=== PATIENT | male | born 1955 | race Caucasian/White ===

== ENCOUNTER 2023-05-31 08:23 | Inpatient (IN) | payer MEDICARE, OTHER, SELFPAY ==
[2023-05-31] VITALS (9 sets, daily range): BP systolic 146–169; BP diastolic 80–100; PULSE 54–79; RESP 15–19; TEMP 36.3–36.4; O2SAT 92–96; BMI 28.7
--- NOTE | 2023-05-31 08:27 | XR_ITS ---
WS: [id number] Portable AP upright chest, 05/31/2023 Clinical Data: dyspnea/cough Comparison: None. Findings: No nodules, masses or effusions are seen. The heart is normal. The pulmonary vascularity is not increased. No pneumonia or pneumothorax is seen. The aortic arch and descending thoracic aorta s how tortuosity. Monitor leads are on the chest wall. There is sclerosis in the head of the right loc sravan. Impression: Atherosclerosis.
--- NOTE | 2023-05-31 08:38 | ECG_ITS ---
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 Measurements Intervals Diana Rate: 73 P: 37 TN: 185 QRS: 3 QRSD: 98 T: 33 QT: 373 QTc: 412 Interpretive Statements SINUS RHYTHM MODERATE VOLTAGE CRITERIA FOR LVH, CONSIDER NORMAL VARIANT [MEETS CRITERIA IN ONE OF: R(aVL), S(V1), R(V5), R(V5/V6)+S(V1)] INFERIOR MYOCARDIAL INFARCTION , PROBABLY OLD [40+ ms Q WAVE AND/OR ST/T ABNORMALITY IN II/aVF] No previous ECG available for comparison Electronically Signed On 06-01-2023 15:56:57 CDT by Moe Cabrera M.D. [email or web address]
[2023-05-31 08:44] LABS: Basophils # 0.1 10^3/uL (0.0-0.1); Basophils % 1.2 %; Eosinophils # 0.1 10^3/uL (0.0-0.8); Eosinophils % 1.1 %; Hematocrit 53.1 % (37-53); Lymphocytes # 1.5 10^3/uL (0.8-4.8); Lymphocytes % 22.8 %; Mean Corpuscular HGB Conc 34.5 g/dL (30-55); Mean Corpuscular Hemoglobin 32.3 pg (27-33); Mean Corpuscular Volume 93.8 fl (82-101); Mean Platelet Volume 10.8 fL (7.4-10.4); Monocytes # 0.5 10^3/uL (0.2-0.9); Monocytes % 7.1 %; Neutrophils # 4.48 10^3/uL (1.8-7.7); Neutrophils % 67.5 %; Nucleated Red Blood Cells % 0 %; Platelet Count 211 10^3/cmm (157-399); Red Blood Count 5.66 10^6/uL (3.85-5.65); Red Cell Distribution Width 12.7 % (12.1-15.1); White Blood Count 6.63 10^3/uL (3.29-11.43)
--- NOTE | 2023-05-31 08:50 | CTR_ITS ---
PROCEDURE INFORMATION: Exam: CT Head Without Contrast Exam date and time: 05/31/2023 9:01 AM Age: 68 years old Clinical indication: Visual disturbance TECHNIQUE: Imaging protocol: Computed tomography of the head without contrast. Radiation optimization: All CT scans at this facility use at least one of these dose optimization techniques: automated exposure control; mA and/or kV adjustment per patient size (includes targeted exams where dose is matched to clinical indication); or iterative reconstruction. COMPARISON: No relevant prior studies available. RADIATION DOSE METRICS: Total DLP (mGy-cm): 1037.48 FINDINGS: Brain: Normal. No hemorrhage. Unremarkable white matter. No mass effect. Cerebral ventricles: No ventriculomegaly. Paranasal sinuses: Visualized sinuses are unremarkable. No fluid levels. Mastoid air cells: Visualized mastoid air cells are well aerated. Bones/joints: Unremarkable. No acute fracture. Soft tissues: Unremarkable. CT/CT head wo con* [id number] IMPRESSION: No acute intracranial abnormality.
--- NOTE | 2023-05-31 08:50 | ED_ITS ---
HPI - Weakness 2 General: Chief complaint: Weakness Stated complaint: weakness Time Seen by Provider: 05/31/23 08:24 Source: patient Mode of arrival: ambulatory History of Present Illness: 68-year-old male presents emergency room complaining of difficulty with vision. He had 2 episodes this morning before arrival of diplopia that were self- limited. He is driving he felt like his eyes are watery across that is difficult as I woke up saying he was wearing contacts and took his contacts out when the glasses that seem to improved it for a time then had another episode again about an hour and a half later. He has had a slight headache. Denies any chest pain or shortness of breath. Patient is nondiabetic. No syncopal episodes associated with this. Does have a history of sleep apnea. No vomiting diarrhea he is felt a little dizzy along with a headache no ataxia. Stroke score done at the bedside was 0. Onset (ago): hour(s) Duration: intermittent Associated symptoms: Denies chest pain, chills, confusion, melena, decreased appetite, diaphoresis, dysuria, easy bruising, fever(s), headache(s), myalgias, nausea, rash, short of breath, syncope or vomiting Review of Systems 2 Const: Denies: fever(s), chills or diaphoresis Card: Denies: chest pain or syncope Resp: Denies: dyspnea GI: Denies: abdominal pain, nausea, vomiting or melena : Denies: dysuria, urinary frequency or urinary urgency Musc: Denies: neck pain or back pain Skin/Breast: Denies: rash Neuro: Denies: headache(s) or confusion Everton/Lymph: Denies: easy bruising Physical Exam 2 Const: COMMON NORMALS: no acute distress GENERAL APPEARANCE: cooperative and comfortable ORIENTATION/CONSCIOUSNESS: Yes awake, Yes oriented to person, Yes oriented to place and Yes oriented to time HENMT: COMMON NORMALS: normocephalic, atraumatic and hearing grossly normal bilaterally HEAD & SCALP: normocephalic and atraumatic Resp: COMMON NORMALS: normal respiratory effort, No retractions, No use of accessory muscles and clear to auscultation bilaterally AUSCULTATION: clear to auscultation bilaterally Cardio: COMMON NORMALS: regular rate, regular rhythm and No murmurs present (Cardio) RATE: regular rate RHYTHM: regular rhythm GI: COMMON NORMALS: Soft to palpation and No hepatosplenomegaly present A USCULTATION: Yes normoactive bowel sounds PALPATION: Yes Soft to palpation, No Tenderness to palpation present (GI), No Guarding due to palpation present (GI) and Yes No hepatosplenomegaly present Extremity: COMMON NORMALS: normal to inspection, capillary refill normal, no clubbing, cyanosis or edema, no calf tenderness and no pedal edema Neuro: SENSORIUM/ORIENTATION: Yes oriented to person, Yes oriented to place and Yes oriented to time Skin: COMMON NORMALS: no rashes or lesions noted GENERAL SKIN EXAM: no rashes or lesions noted Course 2 Vital Signs: Vital signs: Vital Signs Temperature 97.6 F 05/31/23 08:31 Pulse Rate 61 05/31/23 14:37 Respiratory Rate 15 05/31/23 14:37 Blood Pressure 160/92 05/31/23 14:37 Pulse Oximetry 94 05/31/23 14:37 Oxygen Delivery Me thod Room Air 05/31/23 15:05 MDM - Weakness Medical Decision Making CT and CTA of the head and neck are negative. My seeing patient initially and when I went back into the room he is not having any symptoms at all. 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 When we selectively cover one of the other the double vision goes away. The offered new information and saying that she had some babbling of words this morning that lasted very briefly he had at least 2 episodes of this. Also discussed Dr. Harper and ophthalmology. Ophthalmology felt this possibly a 4th nerve palsy Dr. Harper recommended Obstet evaluation with an MRI. Will place in observation with hospitalist consult neurology and ophthalmology. He has no signs of receptive aphasia his describing intermittent expressive aphasia but is completely resolved at this time. On initial exam on repeat exam the stroke score is 0. Lab Data I reviewed the patient's lab results. 05/31/23 08:34 05/31/23 09:[address] 05/31/23 08:50 IMPRESSION: No acute intracranial abnormality. Head/Neck CTA 05/31/23 10:28 IMPRESSION: Left vertebral artery ends in PICA. No stenosis or occlusion IMPRESSION: No stenosis or occlusion. REFERENCES: NASCET CRITERIA. The degree of stenosis in the cervical segment of the internal carotid artery is based on NASCET criteria. Normal is no stenosis. Mild is less than 50% stenosis. Moderate is 50-69% stenosis. Severe is 70% to 99% stenosis. Total occlusion is no detectable patent lumen. Laboratory Results WBC 6.63 10^3/uL (3.29-11.43) 05/31/23 08:34 RBC 5.66 10^6/uL (3.85-5.65) H 05/31/23 08:34 Hgb 18.30 g/dL (11.27-16.99) H 05/31/23 08:34 Hct 53.1 % (37-53) H 05/31/23 08:34 MCV 93.8 fl (82-101) 05/31/23 08:34 MCH 32.3 pg (27-33) 05/31/23 08:34 MCHC 34.5 g/dL (30-55) 05/31/23 08:34 RDW 12.7 % (12.1-15.1) 05/31/23 08:34 Plt Count 211 10^3/cmm (157-399) 05/31/23 08:34 MPV 10.8 fL (7.4-10.4) H 05/31/23 08:34 Neut % (Auto) 67.5 % 05/31/23 08:34 Lymph % (Auto) 22.8 % 05/31/23 08:34 Lea % (Auto) 7.1 % 05/31/23 08:34 Eos % (Auto) 1.1 % 05/31/23 08:34 Baso % (Auto) 1.2 % 05/31/23 08:34 Neut # (Auto) 4.48 10^3/uL (1.8-7.7) 05/31/23 08:34 Lymph # (Auto) 1.5 10^3/uL (0.8-4.8) 05/31/23 08:34 Lea # (Auto) 0.5 10^3/uL (0.2-0.9) 05/31/23 08:34 Eos # (Auto) 0.1 10^3/uL (0.0-0.8) 05/31/23 08:34 Baso # (Auto) 0.1 10^3/uL (0.0-0.1) 05/31/23 08:34 Nucleated RBC % (auto) 0 % 05/31/23 08:34 Nucleated RBCs # 0.0 /100WBC 05/31/23 08:34 Sodium 142 mmol/L (136-145) 05/31/23 09:24 Potassium 4.0 mmol/L (3.5-5.1) 05/31/23 09:24 Chloride 104 mmol/L (98-107) 05/31/23 09:24 Carbon Dioxide 25 mmol/L (22-29) 05/31/23 09:24 Anion Gap 17.0 (5-19) 05/31/23 09:24 BUN 14 mg/dL (8-23) 05/31/23 09:24 Creatinine 0.9 mg/dL (0.7-1.2) 05/31/23 09:24 GFR Calculation 83.7 mL/min (90-130) L 05/31/23 09:24 Glucose 124 mg/dL (65-115) H 05/31/23 09:24 Calculated Osmolality 296 mOsm/kg (285-295) H 05/31/23 09:24 Calcium 9.3 mg/dL (8.5-10.5) 05/31/23 09:24 Total Bilirubin 1.1 mg/dL (0.15-1.2) 05/31/23 09:24 AST 23 U/L (0-40) 05/31/23 09:24 ALT 23 U/L (0-41) 05/31/23 09:24 Alkaline Phosphatase 108 U/L (40-130) 05/31/23 09:24 Troponin T Baseline 7 ng/L (0-15) 05/31/23 09:24 Troponin T 120 Minute 6.79 ng/L (0-15) 05/31/23 11:06 Delta Troponin T -0.21 ABS# (0-10) L 05/31/23 11:06 Total Protein 7.1 g/dL (6.6-8.7) 05/31/23 09:24 Albumin 4.7 g/dL (3.5-5.2) 05/31/23 09:24 Globulin 2.4 g/dL (1.3-4.6) 05/31/23 09:24 Urine Color Yellow (Yellow) 05/31/23 08:25 Urine Appearance Clear (CLEAR) 05/31/23 08:25 Urine pH 7 (5-7) 05/31/23 08:25 Ur Specific Winifred 1.015 (1.005-1.030) 05/31/23 08:25 Urine Protein Neg (Negative) 05/31/23 08:25 Urine Glucose (UA) Norm (Normal) 05/31/23 08:25 Urine Ketones Negative (Negative) 05/31/23 08:25 Urine Blood 2+ (Negative) H 05/31/23 08:25 Urine Nitrate Negative (Negative) 05/31/23 08:25 Urine Bilirubin Neg (Negative) 05/31/23 08:25 Urine Urobilinogen Neg mg/dL (Negative) 05/31/23 08:25 Ur Leukocyte Esterase Negative (Negative) 05/31/23 08:25 Urine RBC 5-10 /hpf (0-2) H 05/31/23 08:25 Urine WBC Rare /hpf (0-5) 05/31/23 08:25 Ur Squamous Epith Cells Rare /hpf (0-5) 05/31/23 08:25 Amorphous Sediment Not Reportable 05/31/23 08:25 Urine Bacteria Trace /hpf (NONE) 05/31/23 08:25 All radiology interpretation(s) finalized by discharge Discharge Plan Discharge Patient Disposition: Placed in Observation Admit Provider: Katelyn Kelley Clinical Impression: Transient diplopia, Expressive aphasia Coding Level of Care Code ED Automation Qa Lead for Nabila Riggs
[2023-05-31] MEDS: hyDRALAzine 20 mg/mL INJ 1 mL 10 MG IVP (09:22)
[2023-05-31] MEDS: labetalol 5 mg/mL SDV 20mL 10 MG IVP (09:23)
[2023-05-31 09:26] LABS: Add Urine Microscopic? YES; Bilirubin Urine Neg (Negative); Blood Urine 2+ (Negative); Glucose Urine UA Norm (Normal); Ketones Urine Negative (Negative); Leukocyte Esterase Urine Negative (Negative); Nitrate Urine Negative (Negative); Protein Urine Neg (Negative); Specific Gravity, Urine 1.015 (1.005-1.030); Urine Appearance Clear (CLEAR); Urine Color Yellow (Yellow); Urobilinogen Urine Neg (Negative); pH Urine 7 (5-7)
[2023-05-31 09:28] LABS: Squamous Epithelial Cell Urine RARE /hpf (0-5); WBC Urine RARE /hpf (0-5)
[2023-05-31 09:29] LABS: Add Urine Culture? No; Bacteria Urine TRACE /hpf
[2023-05-31 10:01] LABS: Troponin(5th) Baseline 7 ng/L (0-15)
[2023-05-31 10:03] LABS: Alanine Aminotransferase 23 U/L (0-41); Albumin Level 4.7 g/dL (3.5-5.2); Alkaline Phosphatase 108 U/L (40-130); Aspartate Amino Transferase 23 U/L (0-40); Blood Urea Nitrogen 14 mg/dL (8-23); Calcium 9.3 mg/dL (8.5-10.5); Carbon Dioxide 25 mmol/L (22-29); Chloride 104 mmol/L (98-107); Creatinine Clr Calc Pharmacy 87.7499; Globulin 2.4 g/dL (1.3-4.6); Glomerular Filtration Rate 83.7 mL/min (90-130); Glucose 124 mg/dL (65-115); Osmolality Calculated 296 mOsm/kg (285-295); Sodium 142 mmol/L (136-145); Total Bilirubin 1.1 mg/dL (0.15-1.2); Total Protein 7.1 g/dL (6.6-8.7)
--- NOTE | 2023-05-31 10:15 | ECG_ITS ---
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 Measurements Intervals Bowie Rate: 68 P: 31 WI: 167 QRS: -1 QRSD: 104 T: 31 QT: 401 QTc: 426 Interpretive Statements SINUS RHYTHM WITH SINUS ARRHYTHMIA VOLTAGE CRITERIA FOR LVH [MEETS CRITERIA IN ONE OF: R(aVL), S(V1), R(V5), R(V5/V6)+S(V1)] INFERIOR MYOCARDIAL INFARCTION , PROBABLY OLD [40+ ms Q WAVE AND/OR ST/T ABNORMALITY IN II/aVF] Compared to ECG 05/31/2023 08:38:22 No significant changes Electronically Signed On 06-01-2023 15:59:56 CDT by Moe Cabrera M.D. [id number]
--- NOTE | 2023-05-31 10:28 | CTR_ITS ---
PROCEDURE INFORMATION: Exam: CTA Head With Contrast, Arteriography Exam date and time: 05/31/2023 10:40 AM Age: 68 years old Clinical indication: Visual disturbance; Additional info: TIA TECHNIQUE: Imaging protocol: Computed tomographic angiography of the head with contrast. Exam focused on the arteries. 3D rendering (Not supervised by radiologist): MIP and/or 3D reconstructed images were created by the technologist. Radiation optimization: All CT scans at this facility use at least one of these dose optimization techniques: automated exposure control; mA and/or kV adjustment per patient size (includes targeted exams where dose is matched to clinical indication); or iterative reconstruction. Contrast material: [id number]; Contrast volume: 100 ml; Contrast route: INTRAVENOUS (IV); COMPARISON: CT head wo con* [id number] 05/31/2023 9:01 AM RADIATION DOSE METRICS: Total DLP (mGy-cm): 480.1 FINDINGS: ANTERIOR CIRCULATION: Right internal carotid artery: Intracranial segment is patent with no significant stenosis. No aneurysm. Right middle cerebral artery: No occlusion or significant stenosis. No aneurysm. Right anterior cerebral artery: No occlusion or significant stenosis. No aneurysm. Left internal carotid artery: Intracranial segment is patent with no significant stenosis. No aneurysm. Left middle cerebral artery: No occlusion or significant stenosis. No aneurysm. Left anterior cerebral artery: No occlusion or significant stenosis. No aneurysm. POSTERIOR CIRCULATION: Right vertebral artery: No occlusion or significant stenosis. No aneurysm. Left vertebral artery: Left vertebral artery ends in PICA. Basilar artery: No occlusion or significant stenosis. No aneurysm. Right posterior cerebral artery: No occlusion or significant stenosis. No aneurysm. Left posterior cerebral artery: No occlusion or significant stenosis. No aneurysm. Brain: No definite mass, mass effect, or midline shift. Cerebral ventricles: No ventriculomegaly. Bones/joints: Unremarkable. No acute fracture. Soft tissues: Unremarkable. PROCEDURE INFORMATION: Exam: CTA Neck With Contrast Exam date and time: 05/31/2023 10:40 AM Age: 68 years old Clinical indication: Visual disturbance; Additional info: TIA TECHNIQUE: Imaging protocol: Computed tomographic angiography of the neck with contrast. Exam focused on the cervical segments of the vasculature. 3D rendering (Not supervised by radiologist): MIP and/or 3D reconstructed images were created by the technologist. Radiation optimization: All CT scans at this facility use at least one of these dose optimization techniques: automated exposure control; mA and/or kV adjustment per patient size (includes targeted exams where dose is matched to clinical indication); or iterative reconstruction. Contrast material: [id number]; Contrast volume: 100 ml; Contrast route: INTRAVENOUS (IV); COMPARISON: CT head wo con* [id number] 05/31/2023 9:01 AM RADIATION DOSE METRICS: Total DLP (mGy-cm): 480.1 FINDINGS: Right common carotid artery: No stenosis. No dissection or occlusion. Right internal carotid artery: No stenosis of the extracranial segment. No dissection or occlusion. Right external carotid artery: No occlusion or stenosis of the origin. Left common carotid artery: No stenosis. No dissection or occlusion. Left internal carotid artery: No stenosis of the extracranial segment. No dissection or occlusion. Left external carotid artery: No occlusion or stenosis of the origin. Right vertebral artery: No stenosis. No dissection or occlusion. Left vertebral artery: No stenosis. No dissection or occlusion. Soft tissues: Normal. No significant soft tissue swelling. Bones/joints: No acute fracture. CT/CT angio headneck* [id number] IMPRESSION: Left vertebral artery ends in PICA. No stenosis or occlusion IMPRESSION: No stenosis or occlusion. REFERENCES: NASCET CRITERIA. The degree of stenosis in the cervical segment of the internal carotid artery is based on NASCET criteria. Normal is no stenosis. Mild is less than 50% stenosis. Moderate is 50-69% stenosis. Severe is 70% to 99% stenosis. Total occlusion is no detectable patent lumen.
[2023-05-31] MEDS: iohexol 350 mg/mL 500 mL Btl (per mL) IV (10:40)
[2023-05-31 11:40] LABS: Troponin 5 2HR 6.79 ng/L (0-15)
[2023-05-31 11:42] LABS: Troponin 5 2HR Delta -0.21 ABS# (0-10)
[2023-05-31] MEDS: sodium chloride 0.9% 1,000 ML 100 ML IV (15:47)
--- NOTE | 2023-05-31 16:20 | MRR_ITS ---
PROCEDURE INFORMATION: Exam: MR Head Without Contrast Exam date and time: 05/31/2023 5:39 PM Age: 68 years old Clinical indication: Visual disturbance; Additional info: Stroke, diplopia, dysarthria TECHNIQUE: Imaging protocol: Magnetic resonance imaging of the head without contrast. COMPARISON: MR angio head wo con [id number] 05/31/2023 5:31 PM, CT head dated 05/31/2023 FINDINGS: Limitations: Suboptimal evaluation of multiple sequences secondary to patient motion. Brain: No acute infarct. No intracranial hemorrhage. No significant white matter disease. Cerebral ventricles: Normal. No ventriculomegaly. Bones/joints: Unremarkable. Paranasal sinuses: Well aerated. No fluid levels. Mastoid air cells: Normal as visualized. No mastoid effusion. Orbital cavities: Orbits and globes are intact. Soft tissues: Unremarkable. MR/MR head wo con* [id number] IMPRESSION: Motion limited study. No acute intracranial abnormality.
--- NOTE | 2023-05-31 16:27 | MRR_ITS ---
PROCEDURE INFORMATION: Exam: MRA Head Without Contrast; Arteriography Exam date and time: 05/31/2023 5:31 PM Age: 68 years old Clinical indication: Visual disturbance; Sudden visual loss; Additional info: Diplopia, dysarthria, as per Dr. Harper TECHNIQUE: Imaging protocol: Magnetic resonance angiography head without contrast. Bpuh-[id number]-[id number] (TOF) technique was utilized for this exam. Exam focused on the arteries. COMPARISON: CT angio headneck* [id number] 05/31/2023 10:40 AM FINDINGS: ANTERIOR CIRCULATION: Right internal carotid artery: Intracranial segment is patent with no significant stenosis. No aneurysm. Right middle cerebral artery: No occlusion or significant stenosis. No aneurysm. Right anterior cerebral artery: No occlusion or significant stenosis. No aneurysm. Left internal carotid artery: Intracranial segment is patent with no significant stenosis. No aneurysm. Left middle cerebral artery: No occlusion or significant stenosis. No aneurysm. Left anterior cerebral artery: No occlusion or significant stenosis. No aneurysm. POSTERIOR CIRCULATION: Right vertebral artery: No occlusion or significant stenosis. No aneurysm. Left vertebral artery: The left intradural vertebral artery is not well assessed on this study but was noted on CTA from same day to terminate in the left posterior inferior cerebeller artery Basilar artery: No occlusion or significant stenosis. No aneurysm. Right posterior cerebral artery: No occlusion or significant stenosis. No aneurysm. Right posterior communicating artery noted. Left posterior cerebral artery: No occlusion or significant stenosis. No aneurysm. MR/MR angio head wo con [id number] IMPRESSION: No significant intracranial arterial stenosis or aneurysm.
--- NOTE | 2023-05-31 16:27 | MRR_ITS ---
PROCEDURE INFORMATION: Exam: MRA Neck With Contrast Exam date and time: 05/31/2023 5:52 PM Age: 68 years old Clinical indication: Visual disturbance; Diplopia; Additional info: Diplopia, dysarthria, as per Dr. Harper TECHNIQUE: Imaging protocol: Magnetic resonance angiography of the neck with contrast. Angiographic sequences such as [id number] (TOF) or Time-resolved contrast techniques were performed. Contrast material: MULTIHANCE; Contrast volume: 20 ml; Contrast route: INTRAVENOUS (IV); COMPARISON: CT angio headneck* [id number] 05/31/2023 10:40 AM FINDINGS: Right common carotid artery: No stenosis. No dissection or occlusion. Right internal carotid artery: No stenosis of the extracranial segment. No dissection or occlusion. Right external carotid artery: No stenosis. No dissection or occlusion of the origin. Right vertebral artery: No stenosis. No dissection or occlusion. Left common carotid artery: No stenosis. No dissection or occlusion. Left internal carotid artery: No stenosis of the extracranial segment. No dissection or occlusion. Left external carotid artery: No stenosis. No dissection or occlusion of the origin. Left vertebral artery: No stenosis. No dissection or occlusion. MR/MR angio neck w con* [id number] IMPRESSION: No stenosis or occlusion. REFERENCES: NASCET CRITERIA. The degree of stenosis in the cervical segment of the internal carotid artery is based on NASCET criteria. Normal is no stenosis. Mild is less than 50% stenosis. Moderate is 50-69% stenosis. Severe is 70% to 99% stenosis. Total occlusion is no detectable patent lumen.
[2023-05-31] MEDS: heparin 5,000 unit/mL INJ 1 mL 5000 UNIT SUBCUT (16:47)
[2023-05-31] MEDS: aspirin 325 mg EC Tablet PO (16:48)
--- NOTE | 2023-05-31 17:12 | P.HP_ITS ---
Providers/Chief Complaint 2 Admitting Physician: Katelyn Kelley MD Chief Complaint: weakness History of Present Illness Owen Jain is a 68 year old male with no significant past medical history, family history of type 2 diabetes mellitus presented to the ER after having multiple episodes of unilateral diplopia associated with confusion and episodes of garbled speech since today morning. As per patient's today morning patient was absolutely fine when he woke up but he had episode lasting for around 3 hours. Since admission he has had 2 episodes. Last episode was also associated with right-sided facial droop. After each episode patient is slightly confused for a small time and then gets back to his baseline. 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 In the ER he was found to have a high blood pressure for which he received 10 of IV hydralazine. Does not check his blood pressures at home and last time he checked was sometime in February when it was 130s over 90s. Care were discussed in detail between the ER physician and neurologist who recommended patient to be admitted under observation and MRI head. Ophthalmology has also been consulted from the ER. On examination patient is lying comfortably in bed, awake and alert without any distress or weakness or numbness in any of his arms or legs, no garbled speech, no dysarthria but does have mild redness of the left eye with slight drooping of the eyelid. 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 Review of Systems 2 General: Reports: 10 or more systems reviewed and unremarkable except in HPI and below Const: Denies: fever(s), chills, body aches, change in appetite, change in weight, malaise, night sweats, diaphoresis, change in sleep pattern, daytime sleepiness or snoring Eyes: Denies: change in vision, blurry vision, photophobia, eye discomfort or eye discharge ENMT: Denies: throat pain, enlarged tonsils, hoarseness, mouth pain, oral sores, dry mouth, tinnitus, nasal congestion or post nasal drip Card: Denies: chest pain, palpitations, irregular heart rhythm, edema, swelling of feet/ankles, lightheadedness, syncope, pre-syncope, dyspnea on exertion, orthopnea, leg pain with exertion or acrocyanosis Resp: Denies: dyspnea, productive cough, non-productive cough, wheezing, stridor, pain on inspiration, change in phlegm color, hemoptysis or chest congestion GI: Denies: abdominal pain, nausea, vomiting, hematemesis, coffee ground emesis, dysphagia, heartburn, diarrhea, constipation, bloating, GI cramping, change in bowel habits, pain on defecation, hematochezia or melena : Denies: flank pain, difficulty urinating, dysuria, urinary frequency, urinary urgency, urinary hesitancy, urinary dribbling, difficulty starting urination, change in urine stream, nocturia or hematuria Musc: Denies: neck pain, back pain, extremity pain, joint pain, joint swelling, joint redness, joint stiffness or limited range of motion Neuro: Denies: headache(s), numbness in extremities, weakness in extremities, sensory changes, lack of coordination, difficulty walking, frequent falls, dizziness, vertigo, confusion, Slurred speech present, difficulty communicating thoughts or seizure-like activity Psych: Denies: anxiety, depression, mood swings, panic attacks, hopelessness or irritability Endo: Denies: polyuria, polydipsia, tired all the time, cold intolerance, excessive sweating, flushing or heat intolerance [place]/Lymph: Denies: easy bruising or easy bleeding All/Imm: Denies: tongue swelling, facial swelling or acute wheezing Medications/Allergies Home Medications Medication Instructions Recorded Confirmed Last Taken Type naproxen sodium 220 mg tablet 440 mg PO Q12H PRN Pain 05/31/23 05/31/23 Unknown History (Aleve) Allergies Allergy/AdvReac Type Severity Reaction Status Date / Time No Known Drug Allergies Allergy Unknown Verified 05/31/23 15:18 PFSH Acute 2 PFSH: Medical History (Updated 05/31/23 @ 17:17 by Rohan Montoya MD) Sanon palsy Surgical History (Updated 05/31/23 @ 17:25 by Rohan Montoya MD) No pertinent past surgical history Family History (Updated 05/31/23 @ 17:25 by Rohan Montoya MD) Other Diabetes Social History (Updated 05/31/23 @ 17:26 by Rohan Montoya MD) Smoking and tobacco/nicotine status: never used tobacco/nicotine Alcohol intake: never Substance/Drug Use: never Caregiver/support person: Yes Lives independently: Yes Household members: spouse Housing: House Marital status: Current occupational status: employed 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 Current occupational exposures/hazards: No Vitals/I&O/Wt Last Vital Signs Temp 97.6 F 05/31/23 16:00 Pulse 72 05/31/23 16:00 Resp 16 05/31/23 16:00 BP 161/93 05/31/23 16:00 Pulse Ox 95 05/31/23 16:00 O2 Del Method Room Air 05/31/23 16:00 05/31/23 05/31/23 05/31/23 06:59 14:59 22:59 Intake Total 83.333 / 83.333 Balance 83.333 / 83.333 Weight last 48 hrs Weight 90.718 kg Weight 90.718 kg Physical Exam 2 Narrative: General: No acute distress, AO x3 HEENT: PERRLA, pupils bilaterally equal and reactive, left pupil injected Chest: Normal vesicular breath sounds, no added sounds, equal good air entry bilaterally CVS: S1-S2 regular, no murmurs, no tachycardia, no gallops, no rubs Abdomen: Soft, nontender, no organomegaly, bowel sounds present Neuro: No focal deficits, no facial deformity, AO x3, power 5/5 in all limbs, plantars bilateral upgoing Data 05/31/23 08:34 05/31/23 09:24 A&P Assessment and plan (1) TIA (transient ischemic attack): Appreciate CT head, CTA head and neck. Aspirin 324 mg one-time followed by 81 mg, atorvastatin 40 mg nightly. Given recurrent symptoms for now we will continue with permissible hypertension. Patient does have concerns for hemoconcentration with hemoglobin up to 18.3 though his platelet and white count is within normal limits. Start on normal saline at 125 cc/h. Check A1c, lipid panel. MRI head along with MR angio head and neck stat. Check echocardiogram. PT/OT/speech therapy evaluation. Seizure precaution, fall precaution. (2) Transient diplopia: Most likely in setting of TIA. Transient. Ophthalmology has been consulted. Will await further recommendations. (3) Expressive aphasia: (4) Elevated blood pressure reading: Will need to continue monitor monitor. Goal blood pressure elevated to be less than 140/90 mmHg in next 24 hours. Will start on antihypertensives accordingly. (5) Polycythemia: Plan Full code Cardiac diet Famotidine for PUD prophylaxis Heparin 5000 every 12 hourly for DVT prophylaxis Attestations 2 Medical Necessity Statement*: Admit under observation for management and further evaluation of TIA Diagnoses TIA (transient ischemic attack) G45.9 Transient diplopia H53.2 Expressive aphasia R47.01 Elevated blood pressure reading R03.0 Polycythemia D75.1
[2023-05-31] MEDS: gadobenate dimeglumine 20 mL vial IV (17:23)
[2023-05-31 17:38] LABS: Amphetamines Screen Urine Negative (Negative); Barbiturates Screen Urine Negative (Negative); Benzodiazepines Screen Urine Negative (Negative); Cocaine Screen Urine Negative (Negative); Opiate Screen Urine Negative (Negative); PCP Screen Urine Negative (Negative); THC Screen Urine Negative (Negative)
[2023-05-31 17:55] LABS: Troponin 5 6HR 6.67 ng/L (0-15)
[2023-05-31 17:56] LABS: Troponin 5 6HR Delta -0.33 ng/L (0-12)
[2023-05-31 18:14] LABS: Iron 98 ug/dL (59-158); Percent Saturation 32.9 % (20-50); Total Iron Binding Capacity 297 mcg/dl; Unsaturated Iron Binding 199 ug/dL (112-347); Vitamin B12 1532 pg/mL (232-1245)
[2023-05-31] MEDS: famotidine 20 mg Tablet PO (18:54)
[2023-05-31] MEDS: sodium chloride 0.9% 1,000 ML 150 ML IV (21:27)
[2023-05-31] MEDS: atorvastatin 40 mg Tablet PO (21:28)
[2023-06-01 03:04] LABS: Basophils # 0.1 10^3/uL (0.0-0.1); Basophils % 1.2 %; Eosinophils # 0.1 10^3/uL (0.0-0.8); Eosinophils % 1.6 %; Hematocrit 48.6 % (37-53); Lymphocytes # 1.5 10^3/uL (0.8-4.8); Lymphocytes % 22.5 %; Mean Corpuscular HGB Conc 33.7 g/dL (30-55); Mean Corpuscular Hemoglobin 31.8 pg (27-33); Mean Corpuscular Volume 94.4 fl (82-101); Monocytes # 0.5 10^3/uL (0.2-0.9); Neutrophils # 4.48 10^3/uL (1.8-7.7); Neutrophils % 66.4 %; Nucleated Red Blood Cells % 0 %; Platelet Count 181 10^3/cmm (157-399); Red Blood Count 5.15 10^6/uL (3.85-5.65); Red Cell Distribution Width 12.6 % (12.1-15.1); White Blood Count 6.75 10^3/uL (3.29-11.43)
[2023-06-01 03:20] LABS: Estmated Average Glucose 117; Hemoglobin A1C 5.7 % (4.0-6.0)
[2023-06-01 03:33] LABS: Alanine Aminotransferase 20 U/L (0-41); Alkaline Phosphatase 89 U/L (40-130); Anion Gap 13.8 (5-19); Aspartate Amino Transferase 20 U/L (0-40); Blood Urea Nitrogen 14 mg/dL (8-23); Calcium 8.4 mg/dL (8.5-10.5); Carbon Dioxide 25 mmol/L (22-29); Chloride 108 mmol/L (98-107); Creatinine Clr Calc Pharmacy 98.7186; Globulin 2.2 g/dL (1.3-4.6); Glomerular Filtration Rate 95.8 mL/min (90-130); Glucose 95 mg/dL (65-115); Magnesium 1.9 mg/dL (1.7-2.3); Osmolality Calculated 296 mOsm/kg (285-295); Phosphorus 3.8 mg/dL (2.5-4.5); Potassium 3.8 mmol/L (3.5-5.1); Sodium 143 mmol/L (136-145); Total Protein 6.2 g/dL (6.6-8.7)
[2023-06-01 03:34] LABS: Chol HDL Ratio 4.33 mg/dL (1.0-5.00); Cholesterol 195 mg/dL (0-200); HDL Cholesterol 45 mg/dL (60-100); LDL Cholesterol Calculated 134 mg/dL (50-129); LDL HDL Ratio 2.98 RATIO (0.00-3.22); Triglycerides 82 mg/dL (0-150)
[2023-06-01 03:49] LABS: Folate Level > 20.0 ng/mL (4.5-32.2)
[2023-06-01] MEDS: heparin 5,000 unit/mL INJ 1 mL 5000 UNIT SUBCUT (03:57)
[2023-06-01] MEDS: sodium chloride 0.9% 1,000 ML 150 ML IV ×2 (03:58→09:41)
[2023-06-01 05:07] VITALS: BP 160/80; PULSE 62; RESP 16; O2SAT 98
--- NOTE | 2023-06-01 06:00 | USCV_ITS ---
Owen Jain Age: 68 Gender: M : 1955 Exam Date: 06/01/2023 08:16 Ordering Phys: Rohan Montoya MD Technologist: Eleuterio Alvarez [place]am [place] [facility] [place]: tia BP: 150 / 89 HR: 63 Rhythm: Sinus Technical Quality: Adequate MEASUREMENTS (Male / Female) Normal Values 2D ECHO LVOT Diameter 2.1 cm LV Ejection Fraction MOD 2C 73.8 % LV Ejection Fraction 2C AL 73.8 % LA Diameter 3.7 cm RA Systolic Volume 4C AL 36.1 ml RA Systolic Volume 4C MOD 35.6 ml Aorta at Sinotubular Diameter 2.6 cm M-MODE LA Ao Ratio MM 1.1 AV Cusp Separation MM 1.8 cm DOPPLER AV Peak Velocity 114.0 cm/s LVOT Peak Velocity 97.0 cm/s AV Area Cont Eq vti 2.7 cm squared AV Area Cont Eq pk 2.9 cm squared MV Peak Velocity 72.0 cm/s MV Area PHT 5.0 cm squared Mitral E to A Ratio 1.0 TR Peak Velocity 166.0 cm/s TR Peak Gradient 11.0 mmHg TR Mean Velocity 101.0 cm/s TR Mean Gradient 4.9 mmHg TR Velocity Time Integral 27.4 cm PV Peak Velocity 120.0 cm/s RV Ejection Time 0.3 s FINDINGS Left Ventricle Left ventricle is normal in size. LV systolic function is normal with EF of 60 to 65%. No regional wall motion abnormalities are seen. Right Ventricle Normal in size and function Right Atrium Normal in size Left Atrium Normal in size Mitral Valve Structurally normal mitral valve. Mild mitral regurgitation. Aortic Valve Structurally normal aortic valve. No significant stenosis or regurgitation. Tricuspid Valve Mild tricuspid regurgitation. Insufficient TR jet to evaluate RVSP. Pulmonic Valve Mild pulmonic regurgitation. Pericardium Normal Aorta Normal in size IVC Appears to be normal CONCLUSIONS LV systolic function is normal with EF of 60 to 65%. Mild mitral regurgitation Mild tricuspid regurgitation Mild pulmonic regurgitation No comparison studies are available Moe Cabrera MD (Electronically Signed) Final Date: 01 June 2023 11:57 S
[2023-06-01 07:46] VITALS: BP 163/55; PULSE 71; RESP 16; TEMP 36.8; O2SAT 94
[2023-06-01] MEDS: aspirin 81 mg EC Tablet PO (07:47)
[2023-06-01] MEDS: famotidine 20 mg Tablet PO (07:48)
[2023-06-01] MEDS: amlodipine 5 mg Tablet PO (09:36)
[2023-06-01 10:27] VITALS: BMI 28.4
[2023-06-01 11:43] VITALS: BP 175/86; PULSE 68; RESP 17; TEMP 36.4; O2SAT 96
--- NOTE | 2023-06-01 12:45 | PM.CONSULT ---
Providers/Reason For Consult Consulting Physician/Specialty*: Dr. Aleja Harper/neurology Reason for Consult*: Intermittent confusion and diplopia Requesting Physician: Dr. Soto and Dr. Pereira Attending Physician: Rohan Montoya MD History of Present Illness History of Present Illness Owen Jain is a 68 year old healthy man who still works full-time after shelter from the . He is active playing softball at home. He and his got into the car about 6 in the morning and [place] driving toward [facility] where they have a second home. He would acknowledge that he has not been eating or drinking as much as usual but he has not been ill. Several hours before arrival, he developed vertical diplopia. He felt unbearably sleepy. He seemed mildly confused and said things that did not make sense to his . He denies headache although he told Dr. Soto that he had a slight headache. He had terrible feeling of everything being wrong. He got better only to suffer another episode several hours later. He arrived in our emergency department at 08 24 and at that time his examination was unremarkable with a stroke scale score of 0. Dr. Soto called because his symptoms were so atypical and we agreed that the patient should be admitted so he could have an MRI. Not long after he got to the floor he had another episode that was sustained. He was talking gibberish. His tongue was sticking out of the left side of his mouth, laterally deviated. He felt nauseated. He went to sleep and slept for an hour or 2 and when he woke up he was famished. I arrived in the room while the patient was still having his MRI scan. I talked with his and then returned to the room after reviewing the patient's MRI and took time to examine him and make a plan. I also reviewed his CT angiogram which was unremarkable and his MR angiogram. He has never had anything like this before. 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 He is not diabetic. He was polycythemic on arrival with a hemoglobin of 18.3 and he is not aware of having polycythemia in the past. He does not smoke. He is anxious to get on the road. He often has irritation of the left eye with erythema because his eye is dry ever since he had Sanon's palsy on the left and he is accustomed to having ptosis on the left since then. Review of Systems General: Reports: 10 or more systems reviewed and unremarkable except in HPI and below Const: Denies: fever(s), chills, body aches, change in appetite, change in weight, malaise, night sweats, diaphoresis, change in sleep pattern, daytime sleepiness or snoring Eyes: Denies: change in vision, blurry vision, photophobia, eye discomfort or eye discharge ENMT: Denies: throat pain, enlarged tonsils, hoarseness, mouth pain, oral sores, dry mouth, tinnitus, nasal congestion or post nasal drip Card: Denies: chest pain, palpitations, irregular heart rhythm, edema, swelling of feet/ankles, lightheadedness, syncope, pre-syncope, dyspnea on exertion, orthopnea, leg pain with exertion or acrocyanosis Resp: Denies: dyspnea, productive cough, non-productive cough, wheezing, stridor, pain on inspiration, change in phlegm color, hemoptysis or chest congestion GI: Denies: abdominal pain, nausea, vomiting, hematemesis, coffee ground emesis, dysphagia, heartburn, diarrhea, constipation, bloating, GI cramping, change in bowel habits, pain on defecation, hematochezia or melena : Denies: flank pain, difficulty urinating, dysuria, urinary frequency, urinary urgency, urinary hesitancy, urinary dribbling, difficulty starting urination, change in urine stream, nocturia or hematuria Musc: Denies: neck pain, back pain, extremity pain, joint pain, joint swelling, joint redness, joint stiffness or limited range of motion Neuro: Reports: dizziness (He has been a little bit dizzy), confusion (According to his and the nurse he would say something that did not pita) and behavioral changes; Denies: headache(s), numbness in extremities, weakness in extremities, sensory changes, lack of coordination, difficulty walking, frequent falls, vertigo (No true vertigo), Slurred speech present, difficulty communicating thoughts or seizure-like activity Psych: Reports: anxiety (He has been under a lot of stress at work); Denies: depression, mood swings, panic attacks, hopelessness or irritability Endo: Denies: polyuria, polydipsia, tired all the time, cold intolerance, excessive sweating, flushing or heat intolerance [place]/Lymph: Denies: easy bruising or easy bleeding All/Imm: Denies: tongue swelling, facial swelling or acute wheezing Medications/Allergies Home Medications Medication Instructions Recorded Confirmed Last Taken Type naproxen sodium 220 mg tablet 440 mg PO Q12H PRN Pain 05/31/23 05/31/23 Unknown History (Aleve) Allergies Allergy/AdvReac Type Severity Reaction Status Date / Time No Known Drug Allergies Allergy Unknown Verified 05/31/23 15:18 Current Medications Generic Name Dose Route Start Last Admin Trade Name Freq PRN Reason Stop Dose Admin Amlodipine Besylate 5 mg 06/01/23 09:20 06/01/23 09:36 Amlodipine 5 Mg Tablet PO 5 mg DAILY AAKASH Administration Aspirin 81 mg 06/01/23 09:00 06/01/23 07:47 Aspirin 81 Mg Ec Tablet PO 81 mg DAILY AAKASH Administration Atorvastatin Calcium 40 mg 05/31/23 21:00 05/31/23 21:28 Atorvastatin 40 Mg Tablet PO 40 mg BEDTIME AAKASH Administration Famotidine 20 mg 05/31/23 18:00 06/01/23 07:48 Famotidine 20 Mg Tablet PO 20 mg BID AAKASH Administration Heparin Sodium (Porcine) 5,000 unit 05/31/23 16:15 06/01/23 03:57 Heparin 5,000 Unit/Ml Inj 1 Ml SUBCUT 5,000 unit Q12H AAKASH Administration PFSH Acute PFSH: Medical History Sanon palsy Surgical History No pertinent past surgical history Family History Other Diabetes Social History Smoking and tobacco/nicotine status: never used tobacco/nicotine Alcohol intake: never Substance/Drug Use: never Caregiver/support person: Yes Lives independently: Yes Household members: spouse Housing: House Marital status: Current occupational status: employed 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 Current occupational exposures/hazards: No Vitals/I&O/Wt Last Vital Signs Temp 97.6 F 06/01/23 11:43 Pulse 68 06/01/23 11:43 Resp 17 06/01/23 11:43 BP 175/86 06/01/23 11:43 Pulse Ox 96 06/01/23 11:43 O2 Del Method Room Air 06/01/23 11:43 05/31/23 06/01/23 06/01/23 22:59 06:59 14:59 Intake Total 1048.333 / 9914.697 2574 / 2168.333 1037.5 / 1037.5 Balance 1048.333 / 2185.794 5854 / 2168.333 1037.5 / 1037.5 Weight last 48 hrs Weight 198 lb Weight 198 lb Weight 200 lb Weight 200 lb Physical Exam Narrative: GENERAL: The patient was well-nourished with a healthy appearance and appropriately groomed. MENTAL STATUS: Orientation was full to 10 of 10 questions of orientation. Speech was fluent without word hesitation. No difficulty following a complex command. The affect was appropriately anxious. CRANIAL NERVES: Visual acuity was intact to reading small print. Visual hart were full to confrontation, direct and consensual. PERRL. He has horizontal diplopia in the midline with 1 mm of asymmetry, left eye slightly elevated. He can see 2 objects vertically displaced. Increased tone in the left side of the face with spasm consistent with old Sanon's palsy. facial sensation was intact in all three distributions of the fifth cranial nerve bilaterally to touch. Hearing was intact to soft spoken voice. Tongue and palate were midline at rest and with protrusion of the tongue and elevation of the palate. Shoulders were symmetric at rest and with shoulder shrug. MOTOR: There was no drift of the extended arms. Fine movements in the hands were rapid and symmetric. Toe tapping was rapid and symmetric. Power was 5/5 in all the muscles of all four extremities tested individually. Bulk and tone were normal. There was no atrophy. No fasciculations were seen. SENSATION: Pin, touch, vibration and proprioception were intact in the four extremities distally. COORDINATION: He staggers to the left but was able to walk with standby assistance for 10 feet, make a turn and safely return to his room. DEEP TENDON REFLEXES: 2/4 throughout. Toes downgoing. GAIT: Midline unsteadiness and staggers to the left HEENT: Normocephalic without dysmorphic features. Conjunctivae were not injected and sclerae were nonicteric. NECK: Carotid upstroke was strong bilaterally without bruits. The thyroid was not enlarged and there were no palpable lymph nodes. CHEST: Clear to auscultation. CARDIOVASCULAR: The heart sounds were normal without murmur or gallop. Regular rate and rhythm. EXTREMITIES: There was no edema or cyanosis. The skin was unremarkable. The spine exhibited normal thoracic kyphosis and normal lumbar lordosis without deformities. Data 06/01/23 02:32 06/01/23 02:32 A&P Assessment and plan (1) Posterior circulation stroke of uncertain pathology: He has been complaining of intermittent diplopia throughout the day. His symptoms do not seem to be intermittent as he was consistently complaining of diplopia and was unsteady on gait. I am not observing confusion that was described by the patient's and the nurse he has had transient confusion and excessive sleepiness. His MRI scan does not show signs of brainstem ischemia. Most of his symptoms can be explained by left 4th nerve palsy that is evident on exam. 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 He needs further observation to watch for neurologic worsening but the findings on his MRI and MRA are comforting. He needs to be hydrated and further workup of his polycythemia can be done as an outpatient. (2) Expressive aphasia: Transient episodes of garbled speech. Not observed by this examiner at this time. Patient was examined at 4 30-5 30 on 05/31/2023 and this note was dictated the following day. Coding Level of Care Code Acute Code for [facility] Fwd Diagnoses Posterior circulation stroke of uncertain pathology I63.539 Expressive aphasia R47.01
[2023-06-01 13:59] VITALS: PULSE 61
--- NOTE | 2023-06-01 14:38 | P.DS_ITS ---
Discharge Providers Date of Admission: 05/31/23 12:52 Date of Discharge: June 01, 2023 Attending Provider at Admission: Katelyn Kelley MD Attending Provider at Discharge: Rohan Montoya MD Consults: Neurology: Dr. Harper Diagnoses at Discharge Discharge Diagnosis (1) Posterior circulation stroke of uncertain pathology: Status: Acute (2) Expressive aphasia: Status: Acute Reason for Visit Reason for Visit: weakness Hospital Course Hospital Course Owen Jain is a 68 year old healthy man who still works full-time after long-term from the . He is active playing softball at home. He and his got into the car about 6 in the morning and [place] driving toward [facility] where they have a second home. He would acknowledge that he has not been eating or drinking as much as usual but he has not been ill. Several hours before arrival, he developed vertical diplopia. He felt unbearably sleepy. He seemed mildly confused and said things that did not make sense to his . He denies headache although he told Dr. Soto that he had a slight headache. He had terrible feeling of everything being wrong. He got better only to suffer another episode several hours later. He arrived in our emergency department at 08 24 and at that time his examination was unremarkable with a stroke scale score of 0. Dr. Soto called because his symptoms were so atypical and we agreed that the patient should be admitted so he could have an MRI. Not long after he got to the floor he had another episode that was sustained. He was talking gibberish. His tongue was sticking out of the left side of his mouth, laterally deviated. He felt nauseated. He went to sleep and slept for an hour or 2 and when he woke up he was famished. Patient was admitted to the hospital further evaluation and management of possible TIA. He did have few episodes during hospitalization of similar to presentation as well. Multiple imaging including CT head, CTA head and neck along with MRI were done which were reported normal. He was evaluated by neurologist during hospitalization. He was found to have elevated blood pressures with polycythemia. His antihypertensives were adjusted. He has been discharged in hemodynamically stable condition on oral antihypertensives including amlodipine 5 mg daily and losartan 50 mg daily, along with baby aspirin and atorvastatin 40 mg daily. He is to maintain his oral hydration with 2 to 3 L of fluids daily. He is to follow-up with neurology within next 2 weeks. He is to repeat his CBC within next 1 month and if remains elevated he has been advised for phlebotomy or blood donation. Target hemoglobin should be around 14-15. He is also advised to check his blood pressure daily and maintain a blood pressure diary. Discharge plans were discussed in detail with patient and patient's spouse at bedside and all the questions were answered. Physical Exam Narrative: General: No acute distress, AO x3 HEENT: PERRLA, pupils bilaterally equal and reactive, left pupil injected Chest: Normal vesicular breath sounds, no added sounds, equal good air entry bilaterally CVS: S1-S2 regular, no murmurs, no tachycardia, no gallops, no rubs Abdomen: Soft, nontender, no organomegaly, bowel sounds present Neuro: No focal deficits, no facial deformity, AO x3, power 5/5 in all limbs, plantars bilateral upgoing Discharge Data Studies Completed and Pending Completed Studies During Hospitalization Category Date Time Status CT head wo con* [id number] Stat Cat Scan 05/31/23 08:50 Completed CTA head neck [CT angio headneck* [id number]] Stat Cat Scan 05/31/23 10:28 Completed XR chest 1V portable [id number] Stat Exams 05/31/23 08:27 Completed MR angio head wo con [id number] Stat MRI 05/31/23 16:27 Completed MR angio neck w con* [id number] Stat MRI 05/31/23 16:27 Completed MR head wo con* [id number] Stat MRI 05/31/23 16:20 Completed CV. echo complete* [id number] Routine Ultrasound 06/01/23 06:00 Completed Pending at discharge Category Date Time Status Acetylcholine Recept Modulatin Urgent Lab 05/31/23 12:57 Ordered Acetylcholine Receptor Binding Routine Lab 05/31/23 13:53 Received Acetylcholine Receptor Block Routine Lab 05/31/23 13:53 Received Radiology Impressions Head CT 05/31/23 08:50 IMPRESSION: No acute intracranial abnormality. Head/Neck CTA 05/31/23 10:28 IMPRESSION: Left vertebral artery ends in PICA. No stenosis or occlusion IMPRESSION: No stenosis or occlusion. REFERENCES: NASCET CRITERIA. The degree of stenosis in the cervical segment of the internal carotid artery is based on NASCET criteria. Normal is no stenosis. Mild is less than 50% stenosis. Moderate is 50-69% stenosis. Severe is 70% to 99% stenosis. Total occlusion is no detectable patent lumen. Head MRI 05/31/23 16:20 IMPRESSION: Motion limited study. No acute intracranial abnormality. Head MRA 05/31/23 16:27 IMPRESSION: No significant intracranial arterial stenosis or aneurysm. Neck MRA 05/31/23 16:27 IMPRESSION: No stenosis or occlusion. REFERENCES: NASCET CRITERIA. The degree of stenosis in the cervical segment of the internal carotid artery is based on NASCET criteria. Normal is no stenosis. Mild is less than 50% stenosis. Moderate is 50-69% stenosis. Severe is 70% to 99% stenosis. Total occlusion is no detectable patent lumen. Laboratory Results WBC 6.75 10^3/uL (3.29-11.43) 06/01/23 02:32 RBC 5.15 10^6/uL (3.85-5.65) 06/01/23 02:32 Hgb 16.40 g/dL (11.27-16.99) 06/01/23 02:32 Hct 48.6 % (37-53) 06/01/23 02:32 MCV 94.4 fl (82-101) 06/01/23 02:32 MCH 31.8 pg (27-33) 06/01/23 02:32 MCHC 33.7 g/dL (30-55) 06/01/23 02:32 RDW 12.6 % (12.1-15.1) 06/01/23 02:32 Plt Count 181 10^3/cmm (157-399) 06/01/23 02:32 MPV 11.0 fL (7.4-10.4) H 06/01/23 02:32 Neut % (Auto) 66.4 % 06/01/23 02:32 Lymph % (Auto) 22.5 % 06/01/23 02:32 [place] % (Auto) 8.0 % 06/01/23 02:32 Eos % (Auto) 1.6 % 06/01/23 02:32 Baso % (Auto) 1.2 % 06/01/23 02:32 Neut # (Auto) 4.48 10^3/uL (1.8-7.7) 06/01/23 02:32 Lymph # (Auto) 1.5 10^3/uL (0.8-4.8) 06/01/23 02:32 [place] # (Auto) 0.5 10^3/uL (0.2-0.9) 06/01/23 02:32 Eos # (Auto) 0.1 10^3/uL (0.0-0.8) 06/01/23 02:32 Baso # (Auto) 0.1 10^3/uL (0.0-0.1) 06/01/23 02:32 Nucleated RBC % (auto) 0 % 06/01/23 02:32 Nucleated RBCs # 0.0 /100WBC 06/01/23 02:32 Sodium 143 mmol/L (136-145) 06/01/23 02:32 Potassium 3.8 mmol/L (3.5-5.1) 06/01/23 02:32 Chloride 108 mmol/L (98-107) H 06/01/23 02:32 Carbon Dioxide 25 mmol/L (22-29) 06/01/23 02:32 Anion Gap 13.8 (5-19) 06/01/23 02:32 BUN 14 mg/dL (8-23) 06/01/23 02:32 Creatinine 0.8 mg/dL (0.7-1.2) 06/01/23 02:32 GFR Calculation 95.8 mL/min (90-130) 06/01/23 02:32 Glucose 95 mg/dL (65-115) 06/01/23 02:32 Estimat Average Glucose 117 06/01/23 02:32 Hemoglobin A1c 5.7 % (4.0-6.0) 06/01/23 02:32 Calculated Osmolality 296 mOsm/kg (285-295) H 06/01/23 02:32 Calcium 8.4 mg/dL (8.5-10.5) L 06/01/23 02:32 Phosphorus 3.8 mg/dL (2.5-4.5) 06/01/23 02:32 Magnesium 1.9 mg/dL (1.7-2.3) 06/01/23 02:32 Iron 98 ug/dL (59-158) 05/31/23 17:19 TIBC 297 mcg/dl 05/31/23 17:19 % Saturation 32.9 % (20-50) 05/31/23 17:19 Unsat Iron Binding 199 ug/dL (112-347) 05/31/23 17:19 Total Bilirubin 1.0 mg/dL (0.15-1.2) 06/01/23 02:32 AST 20 U/L (0-40) 06/01/23 02:32 ALT 20 U/L (0-41) 06/01/23 02:32 Alkaline Phosphatase 89 U/L (40-130) 06/01/23 02:32 Troponin T Baseline 7 ng/L (0-15) 05/31/23 09:24 Troponin T 120 Minute 6.79 ng/L (0-15) 05/31/23 11:06 Delta Troponin T -0.21 ABS# (0-10) L 05/31/23 11:06 Troponin T Hi Sens 6Hr 6.67 ng/L (0-15) 05/31/23 17:19 Troponin T Hi Sens 6Hr Delta -0.33 ng/L (0-12) L 05/31/23 17:19 Total Protein 6.2 g/dL (6.6-8.7) L 06/01/23 02:32 Albumin 4.0 g/dL (3.5-5.2) 06/01/23 02:32 Globulin 2.2 g/dL (1.3-4.6) 06/01/23 02:32 Triglycerides 82 mg/dL (0-150) 06/01/23 02:32 Cholesterol 195 mg/dL (0-200) 06/01/23 02:32 LDL Cholesterol, Calc 134 mg/dL (50-129) H 06/01/23 02:32 HDL Cholesterol 45 mg/dL (60-100) L 06/01/23 02:32 LDL/HDL Ratio 2.98 RATIO (0.00-3.22) 06/01/23 02:32 Cholesterol/HDL Ratio 4.33 mg/dL (1.0-5.00) 06/01/23 02:32 Vitamin B12 1532 pg/mL (232-1245) H 05/31/23 17:19 Folate > 20.0 ng/mL (4.5-32.2) 06/01/23 02:32 TSH 1.40 uIU/mL (0.27-4.20) 05/31/23 17:19 Urine Color Yellow (Yellow) 05/31/23 08:25 Urine Appearance Clear (CLEAR) 05/31/23 08:25 Urine pH 7 (5-7) 05/31/23 08:25 Ur Specific [place] 1.015 (1.005-1.030) 05/31/23 08:25 Urine Protein Neg (Negative) 05/31/23 08:25 Urine Glucose (UA) Norm (Normal) 05/31/23 08:25 Urine Ketones Negative (Negative) 05/31/23 08:25 Urine Blood 2+ (Negative) H 05/31/23 08:25 Urine Nitrate Negative (Negative) 05/31/23 08:25 Urine Bilirubin Neg (Negative) 05/31/23 08:25 Urine Urobilinogen Neg mg/dL (Negative) 05/31/23 08:25 Ur Leukocyte Esterase Negative (Negative) 05/31/23 08:25 Urine RBC 5-10 /hpf (0-2) H 05/31/23 08:25 Urine WBC Rare /hpf (0-5) 05/31/23 08:25 Ur Squamous Epith Cells Rare /hpf (0-5) 05/31/23 08:25 Amorphous Sediment Not Reportable 05/31/23 08:25 Urine Bacteria Trace /hpf (NONE) 05/31/23 08:25 Urine Opiates Screen Negative ng/mL (Negative) 05/31/23 08:25 Ur Barbiturates Screen Negative ng/mL (Negative) 05/31/23 08:25 Ur Phencyclidine Scrn Negative ng/mL (Negative) 05/31/23 08:25 Ur Amphetamines Screen Negative ng/mL (Negative) 05/31/23 08:25 U Benzodiazepines Scrn Negative ng/mL (Negative) 05/31/23 08:25 Urine Cocaine Screen Negative ng/mL (Negative) 05/31/23 08:25 U Marijuana (THC) Screen Negative ng/mL (Negative) 05/31/23 08:25 Vitals Last Vital Signs Temp 97.6 F 06/01/23 11:43 Pulse 61 06/01/23 13:59 Resp 17 06/01/23 11:43 BP 175/86 06/01/23 11:43 Pulse Ox 96 06/01/23 11:43 O2 Del Method Room Air 06/01/23 11:43 Discharge Plan Discharge Patient Disposition: Home Condition: Stable Prescriptions: New atorvastatin 40 mg Tablet 40 mg PO BEDTIME Qty: 30 0RF amlodipine 5 mg Tablet 5 mg PO DAILY Qty: 10 0RF aspirin 81 mg Tablet,Delayed Release (Dr/Ec) 81 mg PO DAILY Qty: 30 0RF losartan 50 mg tablet 50 mg PO DAILY Qty: 30 0RF Continued Aleve 220 mg Tablet 440 mg PO Q12H PRN (Reason: Pain) Discharge Orders: Discharge Order (Routine); Ordered 06/01/23 Ordered By: Rohan Montoya Referrals: Aleja Harper MD [Physician] - 2 weeks (We have notified DR. Aaron office of the need for a follow-up appointment to be scheduled. If you have not heard from them within the next 3 business days, please call them directly. ) Discharge Diet: Cardiac Discharge Activity: Resume usual activity and Increase activity as tolerated Patient Instructions: Aspirin (By mouth), Amlodipine (By mouth), Losartan (By mouth), Atorvastatin (By mouth), Transient Ischemic Attack (DC), Opioid Safety Activity Restrictions/Additional Instructions: Please follow-up with neurology within next 2 weeks. Please follow-up with your primary care provider within next 10 days. Please check your blood pressure daily and maintain a blood pressure diary and follow-up with a primary care provider within next 10 days for further adjustment of blood pressure medications. You will be taking 2 blood pressure medication including amlodipine and losartan once daily. You will also be taking baby aspirin daily along with a cholesterol lowering medication called atorvastatin 40 mg daily. Please maintain your hydration with up to 2 to 3 L of fluids daily. You should repeat your hemoglobin level within next 1 month. Discharge Attestations Time Spent in Discharge Care*: greater than 30 min Specific Discharge Activities: educating patient, educating and/or supporting family/caregiver, discussing with pcp/other providers, discussing with case specialist/social workers/dc planners, documenting/other paperwork and evaluating patient/reviewing data Status at Discharge: Cognitive status at discharge: cognitively intact , Behavioral status at discharge: cooperative , Functional status at discharge: independent ambulation , Overall status at discharge: patient is back to baseline Quality Metrics Clinical Quality Measures [ No reported AMI, CVA or VTE this stay] Coding Level of Care Code 21175 Total time (in minutes) for Discharge: 60 Diagnoses Posterior circulation stroke of uncertain pathology I63.539 Expressive aphasia R47.01
[2023-06-01 15:38] VITALS: BP 175/86; PULSE 61; RESP 18; TEMP 36.6; O2SAT 96
--- NOTE | 2023-06-01 15:39 | PC.NURSE ---
Discharge instructions and stroke information provided to pt. NO questions or concerns at this time. Pt to private vehicle via wheelchair with spouse at side with all belongings.
[2023-06-06 17:03] LABS: Acetylcholine Receptor Block <15 (<15)
[2023-06-07 19:14] LABS: Acetylcholine Receptor Binding <0.30 nmol/L
[2023-06-28 17:15] LABS: Acetylcholine Recept Modulatin 25
== END 2023-06-01 15:40 | disposition home or self-care (01) | DRG 69 ==
LOC: ER 12:47 → MEDSURG 14:25
PROVIDERS: Admitting Provider Student in an Organized Health Care Education/Training Program; Emergency Provider Family Medicine; Visit Provider Student in an Organized Health Care Education/Training Program
DX: G45.9 Transient cerebral ischemic attack, unspecified (principal); R47.01 Aphasia; R03.0 Elevated blood-pressure reading, without diagnosis of hypertension; D75.1 Secondary polycythemia; R41.0 Disorientation, unspecified; H53.2 Diplopia
CPT/HCPCS: 36415; 70450; 70496; 70498; 70544; 70548; 70551; 71045; 80053; 80061; 80306; 81001; 82607; 82746; 83036; 83516; 83519; 83540; 83550; 83735; 84100; 84443; 84484; 85025; 92610; 93005; 93306; 94664; 96372; 96374; 96375; 97116; 97161; 97165; 99285; A9577; J0360; J1644; J3490; J7030; Q9967